=== PATIENT | female | born 1960 | race Caucasian/White ===

== ENCOUNTER 2019-08-26 12:54 | Emergency (ER) | payer OTHER ==
[~2019-08-26] VITALS: Ht 160 cm; Wt 65.8 kg
[2019-08-26] MEDS ORDERED: TRAMADOL 50 MG50 MG PO (12:59)
[2019-08-26] MEDS ORDERED: MEDROLDOSEPACK PO (14:19)
[2019-08-26] MEDS ORDERED: NORFLEX100 MG PO (14:19)
[2019-08-26 14:48] VITALS: BP 143/82
[2019-08-27] MEDS ORDERED: NORCO 5-325 TA1 EAC1 PO (09:42)
== END 2019-08-26 14:49 | disposition home or self-care (01) ==
LOC: ER 12:54
DX: M50.30 Other cervical disc degeneration, unspecified cervical region (principal); G89.29 Other chronic pain; F17.210 Nicotine dependence, cigarettes, uncomplicated

== ENCOUNTER 2019-08-27 08:45 | Emergency (ER) | payer OTHER ==
[~2019-08-27] VITALS: Ht 160 cm; Wt 65.8 kg
[~2019-08-27 08:45] MED LIST: MEDROLDOSEPACK PO; NORFLEX100 MG PO; TRAMADOL 50 MG50 MG PO
[2019-08-27] MEDS ORDERED: NORCO 5-325 TA1 EAC1 PO (09:42)
[2019-08-27 10:09] VITALS: BP 142/58
== END 2019-08-27 10:12 | disposition home or self-care (01) ==
LOC: ER 08:45
DX: M54.12 Radiculopathy, cervical region (principal); G89.29 Other chronic pain; F17.210 Nicotine dependence, cigarettes, uncomplicated

== ENCOUNTER 2019-10-05 18:25 | Emergency (ER) | payer OTHER ==
[~2019-10-05] VITALS: Ht 160 cm; Wt 65.8 kg
[~2019-10-05 18:25] MED LIST changes: +NORCO 5-325 TA1 EAC1 PO
[2019-10-05 18:26] VITALS: BP 122/87
[2019-10-05] MEDS ORDERED: PREDNISONE 10 M10 MG PO (19:14)
[2019-10-05] MEDS ORDERED: ZANAFLEX4 MG PO (19:14)
== END 2019-10-05 20:31 | disposition home or self-care (01) ==
LOC: ER 18:25
DX: M54.12 Radiculopathy, cervical region (principal); K08.89 Other specified disorders of teeth and supporting structures; F17.210 Nicotine dependence, cigarettes, uncomplicated; Z88.8 Allergy status to other drugs, medicaments and biological substances

== ENCOUNTER 2019-10-21 10:50 | Emergency (ER) | payer OTHER ==
[~2019-10-21] VITALS: Ht 157.5 cm; Wt 59.0 kg
[~2019-10-21 10:50] MED LIST changes: +PREDNISONE 10 M10 MG PO; +ZANAFLEX4 MG PO
[2019-10-21 12:08] LABS: URINE BILIRUBIN NEGATIVE (Negative); URINE BLOOD NEGATIVE (Negative); URINE CLARITY CLEAR; URINE COLOR YELLOW; URINE GLUCOSE-RANDOM* NEGATIVE (Negative); URINE KETONES NEGATIVE (Negative); URINE LEUKOCYTES-REFLEX NEGATIVE (Negative); URINE NITRITE-REFLEX NEGATIVE (Negative); URINE PROTEIN (DIPSTICK) NEGATIVE (Negative); URINE SPECIFIC GRAVITY >= 1.030 (1.005-1.035); URINE UROBILINOGEN 0.2 E.U./dl (0.2-1.0)
[2019-10-21 12:16] LABS: AMP/METHAMP Negative (Negative); BARBITURATES Negative (Negative); BENZODIAZEPINES POSITIVE (Negative); COCAINE Negative (Negative); METHADONE Negative (Negative); OPIATES Negative (Negative); PCP Negative (Negative)
[2019-10-21 12:45] VITALS: BP 152/91
== END 2019-10-21 12:45 | disposition home or self-care (01) ==
LOC: ER 10:50
PROVIDERS: Physician Assistant
DX: G89.29 Other chronic pain (principal); M54.5 Low back pain; M25.552 Pain in left hip; F17.210 Nicotine dependence, cigarettes, uncomplicated; Z79.899 Other long term (current) drug therapy; Z88.8 Allergy status to other drugs, medicaments and biological substances; X50.1XXA Overexertion from prolonged static or awkward postures, initial encounter; Y93.K1 Activity, walking an animal; Y92.89 Other specified places as the place of occurrence of the external cause; Y99.8 Other external cause status

== ENCOUNTER → 2020-07-12 | Outpatient (CLI) | payer OTHER | LOC: BC 11:37 | PROVIDERS: ATTEND Internal Medicine | DX: Z12.31 Encounter for screening mammogram for malignant neoplasm of breast (principal) ==

== ENCOUNTER → 2021-08-14 | Outpatient (CLI) | payer OTHER | LOC: BC 10:26 | PROVIDERS: ATTEND Internal Medicine | DX: Z12.31 Encounter for screening mammogram for malignant neoplasm of breast (principal); N64.89 Other specified disorders of breast ==